=== PATIENT | female | born 1995 | race Caucasian/White ===

== ENCOUNTER 2019-10-31 18:35 | Emergency (ER) | payer SELFPAY ==
[~2019-10-31] VITALS: Ht 167.6 cm; Wt 63.5 kg
[~2019-10-31 18:35] MED LIST: BENTYL10 MG PO; CYCL10 PO; ESCI10 PO; FLUO10; Flagyl500 MG PO; IBUP600 PO; MELO7.5; NAPR220 PO; RANI150 PO; Sprintec1 EACH PO; TRAZ100 PO; VENL25; VENL37.5ER PO; [UNRECOGNIZED DRUG - REMARK]
[2019-10-31] MEDS ORDERED: PENVK500 PO (19:24)
== END 2019-10-31 19:28 | disposition home or self-care (01) ==
LOC: ER 18:35
DX: J02.0 Streptococcal pharyngitis (principal); F17.210 Nicotine dependence, cigarettes, uncomplicated; Z79.899 Other long term (current) drug therapy
CPT/HCPCS: 87430; 99282; A9270-GY; J1100

== ENCOUNTER → 2021-05-28 | Outpatient (CLI) | payer SELFPAY ==
[~2021-05-28] MED LIST changes: +PENVK500 PO
[2021-05-28 16:32] LABS: BASOPHILS ABSOLUTE AUTO 0.04 K/mm3 (0.00-0.23); BASOPHILS PERCENT AUTO 1 % (0-2); EOSINOPHILS ABSOLUTE AUTO 0.06 K/mm3 (0.00-0.68); EOSINOPHILS PERCENT AUTO 1 % (0-6); Hematocrit 39.6 % (33.0-51.0); Hemoglobin 13.7 g/dL (11.5-16.0); IMMATURE GRAN ABSOLUTE AUTO 0.02 K/mm3 (0.00-0.10); IMMATURE GRAN PERCENT AUTO 0 % (0-1); LYMPHOCYTES PERCENT AUTO 28 % (21-46); MONOCYTES ABSOLUTE AUTO 0.57 K/mm3 (0.16-1.47); MONOCYTES PERCENT AUTO 8 % (4-13); Mean Corpuscular HGB 30.6 pg (26.0-34.0); Mean Corpuscular HGB Conc 34.6 g/dL (31.5-36.5); Mean Corpuscular Volume 89 fL (80-100); Mean Platelet Volume 9.6 fL (9.1-12.4); NEUTROPHILS ABSOLUTE AUTO 4.35 K/mm3 (1.96-9.15); NEUTROPHILS PERCENT AUTO 62 % (41-73); Platelet Count 327 K/mm3 (150-400); RDW Coefficient Variation 12.3 % (11.7-14.2); RDW Standard Deviation 39.7 fL (35.1-46.3); Red Blood Cell Count 4.47 M/mm3 (3.80-5.20); White Blood Cell Count 7.04 K/mm3 (4.00-11.30)
[2021-05-28 16:49] LABS: Alanine Aminotransfer (ALT/SGP 12 U/L (12-78); Albumin, Blood 4.4 g/dL (3.4-5.0); Albumin/Globulin Ratio 1.2 (0.8-1.8); Alk Phos 68 U/L (40-126); Anion Gap 11 mmol/L (6-16); Aspartate Aminotrans (AST/SGOT 11 U/L (12-37); Bilirubin, Total 0.4 mg/dL (0.1-1.0); Blood Urea Nitrogen 9 mg/dL (8-24); Bun/Creatinine Ratio 12.2 (12.0-20.0); CO2, Blood 28 mmol/L (21-32); Calcium, Blood 9.3 mg/dL (8.5-10.1); Chloride, Blood 105 mmol/L (98-108); Creatinine, Blood 0.74 mg/dL (0.40-1.00); Globulin, Blood 3.7 g/dL (2.2-4.0); Glomerular Filtration Rate >60 (60-); Glucose, Blood 106 mg/dL (70-99); Potassium, Blood 3.7 mmol/L (3.5-5.5); Sodium, Blood 144 mmol/L (136-145); Thyroid Stimulating Hormone 1.223 uIU/mL (0.360-4.800); Total Protein, Blood 8.1 g/dL (6.4-8.2); Troponin I <0.017 ng/mL (0.000-0.040)
== END | disposition home or self-care (01) ==
LOC: LAB SHORT 16:26
PROVIDERS: Chiropractor
DX: R07.9 Chest pain, unspecified (principal); R06.00 Dyspnea, unspecified; R53.83 Other fatigue
CPT/HCPCS: 80053; 84443; 84484; 85025; 85379

== ENCOUNTER → 2025-05-29 | Outpatient (CLI) | payer OTHER ==
[2025-05-29 17:23] LABS: Candida Group, PCR NOT DETECTED (NOT DETECT); Candida glabrata-krusei, PCR NOT DETECTED (NOT DETECT)
[2025-05-29 17:35] LABS: Bacterial Vaginosis PCR Positive (NEGATIVE)
[2025-05-30 18:18] LABS: HEPATITIS C AB CIA INTERP Negative (Negative); HEPATITIS C ANTIBODY CIA INDEX 0.04 IV
[2025-05-30 20:47] LABS: HIV 1,2 COMBO ANTIGEN/ANTIBODY Negative (Negative)
== END ==
LOC: LAB 13:39 → LAB SHORT 13:39
PROVIDERS: Registered Nurse Community Health
DX: Z11.3 Encounter for screening for infections with a predominantly sexual mode of transmission (principal); Z20.2 Contact with and (suspected) exposure to infections with a predominantly sexual mode of transmission
CPT/HCPCS: 81515; 86592; 86803; 87340; 87389